=== PATIENT | male | born 1970 | race Caucasian/White ===

== ENCOUNTER 2019-06-05 10:56 | Emergency (ER) | payer BC, OTHER ==
[2019-06-05] MEDS ORDERED: NS 0.9% 1000 ML** 1,000 ML IV ONE (11:11)
--- NOTE | 2019-06-05 11:12 | ED ---
GI/ HPI - HPI Summary HPI Summary: The patient is a 48 y/o M presenting to [facility] accompanied by and mother with a cc of epistaxis episodes since 06/01/2019 and darkened stools last night. He reports that he does not often have nosebleeds, but he has been experiencing them for a few days. He also has had increasing fatigue since the epistaxis has began. Last night, he developed room-spinning dizziness, b/l maxillary headaches , blurred vision, and dark stools with nausea and vomiting but no hematemesis. He does not usually suffer from headaches. He hasnt noticed any bleeding from the gums or other areas of the body. He denies any abdominal pain, fevers, rashes, syncopal episodes, numbness in the extremities, or unilateral weakness, but he endorses generalized weakness. Symptoms rated 10/10 in severity. No anticoagulants. No PMHx. FHx: cardiac disease, diabetes. Nonsmoker, occasional EtOH, no substance use. Medications reviewed. Allergies noted. Home Medications Medication Instructions Recorded Confirmed Type NK [No Home Medications Reported] 06/05/19 06/05/19 History - History of Current Complaint Chief Complaint: EDGIBleed Time Seen by Provider: 06/05/19 11:03 Stated Complaint: VOMITING BLOOD PER PT Hx Obtained From: Patient Onset/Duration: Started Days Ago, Still Present, Worse Since - last night Timing: Lasting Days Severity: Mild Current Severity: Severe Pain Intensity: 10 Pain Characteristics: Aching Associated Signs and Symptoms: Positive: Dizziness - room-spinning, Nausea, Vomiting, Black Tarry Stool, Melena, Other: - fatigue, malaise, epistaxis, maxillary headaches, blurred vision; Negative: rash, numbness, unilateral weakness, syncope. Negative: Hematemesis, Fever, Abdominal Pain Aggravating Factor(s): Nothing Alleviating Factor(s): Nothing - Allergy/Home Medications Allergies/Adverse Reactions: Allergies Allergy/AdvReac Type Severity Reaction Status Date / Time Penicillins Allergy Rash Verified 06/05/19 11:33 Home Medications: Home Medications NK [No Home Medications Reported] 06/05/19 [History Confirmed 06/05/19] PMH/Surg Hx/FS Hx/Imm Hx Endocrine/Hematology History: Denies: Hx Diabetes Cardiovascular History: Denies: Hx Hypertension History: Denies: Hx Acute Renal Failure - Surgical History Surgical History: None Surgery Procedure, Year, and Place: none Infectious Disease History: No Infectious Disease History: Denies: Traveled Outside the [place] in Last 30 Days - Family History Known Family History: Positive: Cardiac Disease, Diabetes - Social History Alcohol Use: Occasionally Hx Substance Use: No Substance Use Type: Reports: None Hx Tobacco Use: No Smoking Status (MU): Never Smoked Tobacco Review of Systems Positive: Fatigue, Other - general weakness. Negative: Fever Positive: Blurred Vision Positive: Epistaxis Positive: Vomiting - no hematemesis, Nausea, Other - darkened stools. Negative : Abdominal Pain Negative: Rash Neurological/Mental Status: Other - room-spinning dizziness Positive: Headache - maxillary. Negative: Weakness, Numbness, Syncope All Other Systems Reviewed And Are Negative: Yes Physical Exam - Summary Physical Exam Summary: Constitutional: Well-developed, Well-nourished, Alert. (-) Distressed Skin: Warm, Dry HENT: Normocephalic; Atraumatic, no oral lesions Eyes: Conjunctiva normal Neck: Musculoskeletal ROM normal neck. (-) JVD, (-) Stridor, (-) Nuchal rigidity Cardio: Rhythm regular, rate normal, Heart sounds normal; Intact distal pulses; Radial pulses are 2+ and symmetric. (-) Murmur Pulmonary/Chest wall: Effort normal. (-) Respiratory distress, (-) Wheezes, (-) Rales Abd: Soft, (-) tenderness, (-) Distension, (-) Guarding, (-) Rebound Musculoskeletal: (-) Edema Lymph: (-) Cervical adenopathy Neuro: Alert, Oriented x3, GCS 15 Psych: Mood and affect Normal, CN 2-12 grossly intact. Ambulates w steady gait Rectal Exam: Chaperoned by nurse Sherman, No hemorrhoids, No blood in stool noted Triage Information Reviewed: Yes Vital Signs On Initial Exam: Initial Vitals Temp Pulse Resp BP Pulse Ox 98 F 103 20 140/102 98 06/05/19 10:57 06/05/19 10:57 06/05/19 10:57 06/05/19 10:57 06/05/19 10:57 Vital Signs Reviewed: Yes - Furlong Coma Scale Best Eye Response: 4 - Spontaneous Best Motor Response: 6 - Obeys Commands Best Verbal Response: 5 - Oriented Coma Scale Total: 15 Procedures - Sedation Patient Received Moderate/Deep Sedation with Procedure: No Diagnostics - Vital Signs Vital Signs Temp Pulse Resp BP Pulse Ox 06/05/19 10:57 98 F 103 20 140/102 98 - Laboratory Result Diagrams: 06/05/19 11:19 06/05/19 11:19 Lab Statement: Any lab studies that have been ordered have been reviewed, and results considered in the medical decision making process. - CT Brain CT CT Interpretation Completed By: Radiologist Summary of CT Findings: Impression: No acute intracranial abnormality. ED physician has reviewed this report. - EKG 1123 Cardiac Rate: NL - 89 BPM EKG Rhythm: Sinus Rhythm Summary of EKG Findings: An EKG at 1123 reveals normal sinus rhythm at rate of 89 BPM, prolonged QTc. No STEMI. ED physician has reviewed and interpreted this EKG. Re-Evaluation - Re-Evaluation First Eval Re-Evaluation Time: 13:55 Comment: Discussed all results and plan for d/c. Headache improved. GIGU Course/Dx - Course Course Of Treatment: 48 y/o male p/w headache, lightheadedness, concern for GI bleed. - VS: tachycardic low 100's. Afebrile. well-appearing. Although does NOT have a history of headache of exactly the same type, pain was not sudden onset/thunderbolt, not worst of life, no meningismus, no neuro deficit on exam, and no personal/family history of aneurysm, so unlikely ICH. No known/suspected cancer and neuro exam WNL, so unlikely mass lesion. No fever, URI sx, meningismus, or known immunocompromised state to suggest meningitis. Head CT checked given new headache w a/w vertigo. - Regarding cocnern for GI bleed, hemoglobin stable, normal platelets. The patient thinks he swallowed some blood from his nose bleed, which could account for the episode of blood in the stool, Hemoccult negative here. - given IVF, toradol, Mg and feels better. Ambulated w steady gait in ED - Diagnoses Provider Diagnoses: Headache, Fatigue Discharge ED - Sign-Out/Discharge Documenting (check all that apply): Patient Departure - Patient will be discharged home. - Discharge Plan Condition: Stable Disposition: HOME Patient Education Materials: Acute Headache (DC), Fatigue (ED) Referrals: Konrad Blanco MD [Primary Care Provider] - 3 Days Additional Instructions: You were seen in the emergency department for fatigue and blood in stool. Your stool did not show any blood here. Your CT scan did not show any abnormalities. Your blood work does not show any evidence of infection. If any studies were not completed at the time of discharge you will be called with the relevant results. Please follow up with your primary care doctor in the next 2-3 days and return to the emergency department for worsening headaches, bleeding or concerning symptoms. It was a pleasure taking care of you today. - Billing Disposition and Condition Condition: STABLE Disposition: Home - Attestation Statements Document Initiated by Agata: Yes Documenting Scribe: Emmy Prince Provider For Whom Agata is Documenting (Include Credential): Dr. Sol Hannon MD Scribe Attestation: Emmy Roblero scribed for Dr. Sol Hannon MD on 06/05/19 at 1413. Scribe Documentation Reviewed: Yes Provider Attestation: The documentation as recorded by the Emmy su accurately reflects the service I personally performed and the decisions made by me, Dr. Sol Hannon MD Status of Scrdino Document: Viewed
[2019-06-05 11:40] LABS: ABS Lymphocytes 0.3 10^3/ul (1.0-4.8); ABS Monocytes 0.8 10^3/ul (0-0.8); ABS Neutrophils 3.8 10^3/ul (1.5-7.7); Eosinophil % 0.3 %; Hematocrit 42 % (42-52); Hemoglobin 14.7 g/dL (14.0-18.0); Lymphocyte % 5.1 %; Mean Corpuscular HGB Conc 35 g/dL (31-36); Mean Corpuscular Hemoglobin 32 pg (27-31); Mean Corpuscular Volume 92 fL (80-94); Mean Platelet Volume 9.4 fL (7.4-10.4); Platelet Count 163 10^3/uL (150-450); Red Blood Count 4.54 10^6 /uL (4.18-5.48); Red Cell Distribution Width 13 % (10-15); White Blood Count 4.9 10^3/uL (3.5-10.8)
[2019-06-05 11:48] LABS: INR 0.99 (0.82-1.09)
[2019-06-05 12:07] LABS: Albumin 4.6 g/dL (3.2-5.2); Albumin/Globulin Ratio 1.6 (1-3); BUN/Creatinine Ratio 12.5 (8-20); Calcium 9.6 mg/dL (8.6-10.3); EGFR African American 85.4 (>60); EGFR Non-African American 70.6 (>60); Globulin 2.9 g/dL (2-4); Magnesium 1.8 mg/dL (1.9-2.7); Potassium 3.4 mmol/L (3.5-5.0); Total Bilirubin 0.7 mg/dL (0.2-1.0); Total Protein 7.5 g/dL (6.4-8.9)
[2019-06-05 12:08] LABS: Troponin I 0.01 ng/mL (<0.03)
[2019-06-05] MEDS ORDERED: Ketorolac INJ* 30 MG/ML 1 ML VIAL IV PUSH ONE (12:11)
[2019-06-05] MEDS ORDERED: Magnesium Sulfate 1 GM IV* 1 GM/100 ML BAG IV ONE (12:11)
[2019-06-05 13:58] VITALS: BP 147/93
== END 2019-06-05 13:57 | disposition home or self-care (01) ==
LOC: ED 10:56
DX: R51 Headache (principal); R53.83 Other fatigue; R04.0 Epistaxis; H53.8 Other visual disturbances; R19.5 Other fecal abnormalities; R11.2 Nausea with vomiting, unspecified
CPT/HCPCS: 36415; 70450; 80053; 82270; 83735; 84484; 85025; 85610; 93005; 96361; 96365; 96375; 99282; J1885; J3475